=== PATIENT | male | born 1955 | race Caucasian/White ===

== ENCOUNTER 2025-04-13 07:27 | Day surgery (SDC) | payer MEDICARE, BC ==
[2025-04-13] MEDS ORDERED: Propofol 200 MG/20 ML SDV IV ONE (07:28)
[2025-04-13] MEDS ORDERED: Lactated Ringers 1,000 ML IV ONE (07:28)
[2025-04-13] MEDS: Lactated Ringers 1,000 ML IV SCH (07:55)
[2025-04-13] MEDS ORDERED: Propofol 200 MG/20 ML SDV ONE (08:07)
[2025-04-13 09:17] VITALS: PULSE 57
[2025-04-13 09:49] VITALS: BP 140/61
== END 2025-04-13 10:00 | disposition home or self-care (01) ==
LOC: DL.ENDO 07:27
PROVIDERS: ATTEND Internal Medicine Gastroenterology
DX: D12.4 Benign neoplasm of descending colon (principal); D50.9 Iron deficiency anemia, unspecified; K57.30 Diverticulosis of large intestine without perforation or abscess without bleeding; E66.09 Other obesity due to excess calories; I10 Essential (primary) hypertension; Z68.30 Body mass index [BMI] 30.0-30.9, adult
CPT/HCPCS: 45385; J7120; 88305; J2704; S5010

== ENCOUNTER 2025-04-23 06:43 | Day surgery (SDC) | payer MEDICARE, BC ==
[2025-04-23] MEDS ORDERED: Propofol 200 MG/20 ML SDV IV ONE (06:44)
[2025-04-23] MEDS ORDERED: Lactated Ringers 1,000 ML IV ONE (06:44)
[2025-04-23] MEDS: Lactated Ringers 1,000 ML IV SCH (07:15)
[2025-04-23] MEDS ORDERED: Propofol 200 MG/20 ML SDV ONE (10:42)
[2025-04-23 10:43] VITALS: BP 128/68; PULSE 59
== END 2025-04-23 10:40 | disposition home or self-care (01) ==
LOC: DL.ENDO 06:43
PROVIDERS: ATTEND Internal Medicine Gastroenterology
DX: K22.710 Barrett's esophagus with low grade dysplasia (principal); K31.89 Other diseases of stomach and duodenum; K44.9 Diaphragmatic hernia without obstruction or gangrene; E61.1 Iron deficiency; I10 Essential (primary) hypertension
CPT/HCPCS: 00731; 43239; J2003; J2704; J7120; 88305